=== PATIENT | female | born 1960 | race Caucasian/White ===

== ENCOUNTER 2021-06-25 08:41 | Observation (INO) | payer OTHER, SELFPAY ==
[2021-06-25] VITALS (45 sets, daily range): BP systolic 102–138; BP diastolic 51–76; PULSE 43–95; RESP 12–29; TEMP 36.2–36.9; O2SAT 93–100; BMI 24.1
--- NOTE | ~2021-06-25 | XR_ITS ---
EXAMINATION: XR chest 1V portable DATE: 06/25/2021 12:07 INDICATION: Syncope and vomiting TECHNIQUE: frontal view of the chest was obtained. COMPARISON: None FINDINGS: The lungs are clear with no focal airspace opacities, pulmonary edema, pleural effusion or pneumothor ax. The cardiomediastinal silhouette is within normal limits accounting for AP technique and slight r ightward rotation of the patient. IMPRESSION: 1. No acute cardiopulmonary disease. Reviewed, dictated and finalized at location B.
--- NOTE | 2021-06-25 08:49 | ECG_ITS ---
Measurements Intervals [place] Rate: 42 P: 73 [place]: 206 QRS: 19 QRSD: 122 T: -1 QT: 511 QTc: 431 Interpretive Statements SINUS BRADYCARDIA WITH SINUS ARRHYTHMIA BASELINE ARTIFACT- II, III, AVR, AVF, V1, V3-V6 ABNORMAL ECG Electronically Signed On 06-25-2021 9:14:27 CDT by Graeme Saha D.O.
[2021-06-25 09:29] LABS: Basophils Absolute Auto 0.1 K/mm3 (0.0-0.1); Basophils Percent Auto 0.7 % (0.2-1.2); Eosinophils Absolute Auto 0.1 K/mm3 (0-0.3); Eosinophils Percent Auto 0.7 % (0-4.4); Hematocrit 33.7 % (37.0-47.0); Hemoglobin 11.1 g/dL (12.0-15.0); Immature Granulocyte Absolute 0.02 K/mm3 (0.00-0.031); Immature Granulocyte Percent A 0.3 % (0-0.5); Lymphocytes Absolute Auto 1.27 K/mm3 (0.9-3.2); Lymphocytes Percent Auto 18.6 % (18.3-44.2); Mean Corpuscular HGB Conc 32.9 g/dl (32-36); Mean Corpuscular Hemoglobin 30.8 pg (26-34); Mean Corpuscular Volume 93.6 fl (80-100); Monocytes Absolute Auto 0.5 K/mm3 (0.1-0.6); Monocytes Percent Auto 7.3 % (2.6-8.5); Neutrophils Percent Auto 72.4 % (45.5-73.1); Platelet Count Result 271 k/mm3 (150-375); White Blood Count 6.8 K/mm3 (4.5-10.0)
[2021-06-25 09:40] LABS: Anion Gap 9 mmol/L (8-16); Blood Urea Nitrogen 14 mg/dL (7-17); Calcium 9.4 mg/dL (8.4-10.2); Carbon Dioxide 25 mmol/L (22-30); Chloride 101 mmol/L (98-107); Estimated CRCL calculation 44 ml/min; Estimated Glomerular Filt Rate > 60; Glucose 136 mg/dL (65-110); Potassium 3.6 mmol/L (3.4-5.0); Sodium 135 mmol/L (137-145)
[2021-06-25] MEDS: ONDANSETRON INJ 4 MG/2 ML VIAL IV PUSH (11:16)
--- NOTE | 2021-06-25 11:21 | ED.SYNCOPE ---
HPI - Syncope General Chief Complaint: Syncope Stated Complaint: DIZZY/SYNCOPE Time Seen by Provider: 06/25/21 09:57 Source: patient, EMS and RN notes reviewed Limitations: no limitations History of Present Illness HPI narrative: 61 years old white female brought to the emergency room by ambulance from work because of syncope. Patient was walking at work across the room, felt lightheadedness, and felt like she is going to pass out. Patient laid down on the floor, kept her legs above a chair then passed out for unknown duration. No weakness. On arrival to emergency room patient is nauseated, feeling weak all over, and dizzy. Patient is telling me that she did not feel well when she got up from sleep this morning with lightheadedness. Patient was seen her acting section chief yesterday at [facility] Dr. Webb for regular checkup and was told that probably she is going to need a pacemaker. History of atrial fibrillation, vasovagal, patient on flecainide, metoprolol, Eliquis and aspirin. Patient is not vaccinated for COVID-19 Related Data Home Medications Medication Instructions Recorded Confirmed aspirin [Adult Low Dose Aspirin] 81 mg PO DAILY 11/01/19 11/01/19 escitalopram oxalate 10 mg PO DAILY 11/01/19 11/01/19 metoprolol tartrate 25 mg PO BID 11/01/19 11/01/19 Allergies Allergy/AdvReac Type Severity Reaction Status Date / Time gluten Allergy Unknown Rash Verified 11/01/19 18:23 Review of Systems Review of Systems: CONSTITUTIONAL: Denies fever, chills, or sweats. EYES: Denies visual changes, redness, or discharge. ENT: Denies rhinorrhea, congestion, sore throat, or otalgia. CARDIOVASCULAR: Denies chest pain, palpitations, or edema. RESPIRATORY: Denies cough or dyspnea. GASTROINTESTINAL: Denies abdominal pain, nausea, vomiting, or diarrhea. GENITOURINARY: Denies dysuria or hematuria. SKIN: Denies rash or itching. MUSCULOSKELETAL: Denies back pain, joint pain, or myalgia. NEUROLOGIC: Denies headache, numbness, or weakness. PSYCHIATRIC: Denies anxiety or depression. [facility] Past Medical History Medical History Afib Vasovagal syncope Surgical History Surgical History H/O left knee surgery History of removal of ovarian cyst History of right knee surgery Social History Social History Smoking status: Never smoker Gender identity (if verbalized by the patient): Female Exam Narrative: General appearance: Well-developed, well-nourished Skin: Normal color Head: Normocephalic, nontraumatic Eyes: Clear conjunctiva ENT: Oropharynx normal, ears normal, nose normal Neck: Supple, nontender Chest and respiratory: Airway patent, no respiratory distress, no accessory muscle use Heart: Bradycardia Abdomen: Soft, nontender, no organomegaly, quiet bowel sounds Vascular: Normal peripheral pulses, normal capillary refill. 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
--- NOTE | 2021-06-25 12:59 | PM.IMHP ---
H&P: HPI History of Present Illness Date/Time: 06/25/21 12:59 this is a 61-year-old female patient who was brought to the emergency room via ambulance from work due to syncopal episode. The patient stated that she was walking across the room and felt lightheaded. She stated that she did lose consciousness for few seconds. The patient stated that she laid on the floor and had her feet elevated. She did not have any weakness but complained of some mild chest discomfort. The patient typically sees a hourly shift Dr. Webb at [facility]. her last visit to her hourly shift was yesterday. The patient stated that she has had several syncopal episodes over the years. She was told by her hourly shift that she may possibly need to receive a pacemaker. Her heart rate is in the 40s here. She was given Zofran in the emergency room. She does have a history of atrial fibrillation and is on anticoagulation. She has not been vaccinated for COVID-19. She is being admitted for inpatient services on the date of service of 06/25/2021. Chief Complaint: Syncopal episode Review of Systems Review of Systems: All systems reviewed & are unremarkable except as noted in HPI and below Constitutional: Constitutional: Reports as per HPI and Reports no additional constitutional complaints Eyes: Eyes: Reports as per HPI and Reports no additional eye complaints ENT: Reports system reviewed and no additional complaints, except as documented and Reports Normal hearing present Cardiovascular: Cardiovascular: Reports no additional cardiovascular complaints Respiratory: Respiratory: Reports no additional respiratory complaints and Reports no additional respiratory complaints Gastrointestinal: Gastrointestinal: Reports as per HPI and Reports no additional gastrointestinal complaints Musculoskeletal: Musculoskeletal: Reports no additional musculoskeletal complaints Integumentary/Breasts: Skin/Breast: Reports system reviewed and no additional complaints, except as docu and Reports as per HPI Neurologic: Reports system reviewed and no additional complaints, except as documented, Reports as per HPI and Reports Normal hearing present Psychiatric: Psychiatric: Reports no additional psychiatric complaints and Reports as per HPI Endocrine: Endocrine: Reports no additional endocrine complaints Hematologic/Lymphatic: Hematologic/Lymphatic: Reports no additional hematologic/lymphatic complaints Allergic/Immunologic: Allergic/Immunologic: Reports no additional allergic/immunologic complaints PMFSH Past Medical History Medical History Afib Paroxysmal Vasovagal syncope Surgical History Surgical History H/O left knee surgery History of removal of ovarian cyst History of right knee surgery Family History Family History (Updated 06/25/21 @ 13:10 by Gail Peck NP) Father CAD (coronary artery disease) Mother Pancreatic cancer Social History Social History (Updated 06/25/21 @ 13:11 by Gail Peck NP) Social History: the patient is and does not have any children. 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 She desires to be a full code. She is a lifelong nonsmoker. She does not use any illicit drugs or alcohol. Smoking status: Never smoker Gender identity (if verbalized by the patient): Female Meds Home Medications and Allergies Home Medications Medication Instructions Recorded Confirmed Type aspirin [Adult Low Dose Aspirin] 81 mg PO DAILY 11/01/19 11/01/19 History escitalopram oxalate 10 mg PO DAILY 11/01/19 11/01/19 History metoprolol tartrate 25 mg PO BID 11/01/19 11/01/19 History Allergies Allergy/AdvReac Type Severity Reaction Status Date / Time gluten Allergy Unknown Rash Verified 11/01/19 18:23 Vital Signs Vital Signs - 24 hr 06/25/21 08:45
--- NOTE | 2021-06-25 13:03 | PC.NURSE ---
PT. c/o to RN that she is severely dehydrated and dizzy. Pt. reports fluids were hung but never given to her. RN educated pt. that those fluids were originally hung by EMS and that there were no orders for fluids at this time. RN offered to ask for fluid orders and Zofran. pt. refused stating she will be fine.
[2021-06-25 13:45] LABS: Alanine Aminotransferase 13 U/L (4-35); Albumin Level 4.3 g/dL (3.5-5.1); Alkaline Phosphatase 55 U/L (38-126); Aspartate Amino Transferase 27 U/L (14-36); Bilirubin,Total 0.4 mg/dL (0.2-1.3)
[2021-06-25 13:53] LABS: Troponin I < 0.012 ng/mL (0.000-0.034)
--- NOTE | 2021-06-25 14:33 | ADMGEN ---
This patient, Serenity Gastelum, was admitted to IMU Room 200-01. Patient/family oriented to hospital policies and general routines including ID bracelet, bed and alarms, visiting hours, pain management, procedures, bathroom and other care routines, personal items, smoking policy, room service/diet, and visiting hours. Information on how to activate the Rapid Response Team has been discussed. Patient/Family are encouraged to report perceived risks to care and to ask questions if they do not understand what they are told or what they should do.
[2021-06-25] MEDS: SODIUM CHLORIDE 0.9% IV 1,000 ML 100 ML IV CONT (14:51)
--- NOTE | 2021-06-25 15:47 | PM.CNCAR ---
Assessment and Plan Assessment and plan (1) Afib: Code(s): I48.91 - Unspecified atrial fibrillation Status: Chronic Assessment and Plan: She is markedly bradycardic at this point. This is likely result of her syncope. Will hold her metoprolol and flecainide. I did talk to her about the possibility of a pacemaker. I think that it is a reasonable option given the fact she has required antiarrhythmic therapy in order to maintain sinus rhythm. Obviously another option would be to simply stop per flecainide and metoprolol and keep her on anticoagulation and monitor heart rate and rhythm. Regardless though for now given her bradycardia she is in agreement to stop the metoprolol and flecainide. Obviously will hold her Eliquis also in preparation for possible pacemaker implantation. Will further discuss this with Dr. Hernández. Will order 2D echocardiogram with Doppler to re-evaluate her overall ejection fraction preparation for pacemaker and given her syncopal episode. Will also review records from Dr. Garza (2) Syncope: Qualifiers: Syncope type: unspecified Qualified Code(s): R55 - Syncope and collapse Code(s): R55 - Syncope and collapse Status: Acute Assessment and Plan: Will check echo and hold metoprolol and flecainide. Continue telemetry monitoring. (3) Bradycardia, sinus: Code(s): R00.1 - Bradycardia, unspecified Status: Acute Assessment and Plan: As above. EKG in the morning. 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 Olmos History: Patient is a 61-year-old female who did see Dr. Hernández a couple of years ago. She was seen for atrial fibrillation. She ventrally went to Dr. Garza at [facility] for electrophysiology evaluation and treatment of her atrial fibrillation. She was recently put on metoprolol. She had a cardioversion on metoprolol but then reverted back into atrial fibrillation about a year later. She was then started on antiarrhythmic therapy including sotalol and then transition to flecainide with metoprolol. She had another cardioversion on antiarrhythmic therapy. She remains in sinus rhythm but over the past couple weeks has not been feeling very well. Yesterday she had an appointment with Dr. Garza. It was noted that she was markedly bradycardic. There was a conversation between he and the patient about proceeding with a pacemaker versus stopping flecainide and metoprolol. His office is supposed to call her back in a couple of days to finalize decision. Patient has been feeling quite poorly over the past couple of weeks. She is feeling listless, weak, lack of energy, shortness of breath. Today she proceeded to go to work despite feeling poorly. While at work she felt very dizzy, lightheaded and knew she was going to pass out. She has passed out the past and so she walked over to a corner and sat down and did lose consciousness. She is unaware as to how long she was unconscious. Regardless though EMS was called she was brought to the hospital for further evaluation where she is found to be markedly bradycardic with heart rate in low 40s. There is also slight concern of a 2-1 heart block. Regardless she was admitted for further workup and evaluation. Originally she was going to be transferred to [facility] which she wanted to stay here for 2nd opinion
[2021-06-25 15:53] LABS: Troponin I < 0.012 ng/mL (0.000-0.034)
[2021-06-25 21:18] LABS: T4 Thyroxine 6.83 ug/dL (5.53-11.0)
[2021-06-26] VITALS (10 sets, daily range): BP systolic 106–125; BP diastolic 62–77; PULSE 40–51; RESP 12; TEMP 36.2–37.1; O2SAT 96–100
--- NOTE | 2021-06-26 | ECHO_ITS ---
Patient Info Name: Serenity Gastelum Age: 61 years : 1960 Gender: Female Ht: 62 in Wt: 132 lbs BSA: 1.63 m2 HR: 45 bpm BP: 109 / 63 mmHg Heart Rhythm: Sinus Rhythm Exam Date: 06/26/2021 8:54 AM Exam Location: [facility] Patient Status: Outpatient Admit Date: 06/25/2021 Staff Ordering Physician: Michelet Villalobos MD Application Software Engineer: Yosef Greene, LIO, RT Attending Provider: Jake Isaac MD Referring Physician: Griselda PORTILLO; Exam Type: CA echo doppler color flow Study Info Indications R55 - Syncope and collapse R00.1 - Bradycardia, unspecified Complete two-dimensional, color flow and Doppler transthoracic echocardiogram is performed. Strain analysis performed. Summary 1. Complete two-dimensional, color flow and Doppler transthoracic echocardiogram is performed. 2. Strain analysis performed. 3. Left ventricular chamber dimension is normal. 4. Left ventricular systolic function is normal, estimated at 55-60%. 5. There is no increased left ventricular wall thickness. 6. The left ventricular diastolic function is normal. 7. Global longitudinal strain is normal at -24 %. 8. Left atrial chamber dimension is moderately enlarged. 9. There is mild aortic valve regurgitation. 10. The mitral valve has posterior prolapse. 11. There is mild mitral valve regurgitation. 12. There is mild tricuspid valve regurgitation. 13. Mild pulmonary hypertension, estimated pulmonary arterial systolic pressure is 42 mmHg. 14. There is mild pulmonic regurgitation. Left Ventricle Left ventricular chamber dimension is normal. Left ventricular systolic function is normal, estimated at 55-60%. There is no increased left ventricular wall thickness. The left ventricular diastolic function is normal. Global longitudinal strain is normal at -24 %. Right Ventricle Right ventricular chamber dimension is normal. Right ventricular systolic function is normal. Left Atria Left atrial chamber dimension is moderately enlarged. Right Atria Right atrial chamber dimension is normal. Atrial Septum Intact interatrial septum visualized by color flow imaging. Aortic Valve The aortic valve is trileaflet. There is no aortic valve sclerosis. There is no aortic valve stenosis. There is mild aortic valve regurgitation. Pulmonic Valve The pulmonic valve is normal. There is no pulmonic valve stenosis. There is mild pulmonic regurgitation. Mitral Valve The mitral valve has posterior prolapse. There is no mitral valve stenosis. There is mild mitral valve regurgitation. Tricuspid Valve The tricuspid valve leaflets are normal. There is no significant tricuspid valve stenosis. There is mild tricuspid valve regurgitation. Mild pulmonary hypertension, estimated pulmonary arterial systolic pressure is 42 mmHg. Pericardium/Pleural The pericardium appears normal. There is no pericardial effusion. Inferior Vena Cava Dilated inferior vena cava with <50% collapse upon inspiration consistent with elevated right atrial pressure, 15 mmHg. Aorta The aortic root size at the sinus of Valsalva is normal. Left Ventricular Outflow Tract Name Value Normal LVOT 2D LVOT Diameter 2.1 cm
[2021-06-26] MEDS: SODIUM CHLORIDE 0.9% IV 1,000 ML 100 ML IV CONT (01:08)
[2021-06-26 05:19] LABS: Basophils Percent Auto 0.6 % (0.2-1.2); Eosinophils Absolute Auto 0.1 K/mm3 (0-0.3); Eosinophils Percent Auto 1.1 % (0-4.4); Hematocrit 30.8 % (37.0-47.0); Hemoglobin 9.9 g/dL (12.0-15.0); Immature Granulocyte Absolute 0.01 K/mm3 (0.00-0.031); Immature Granulocyte Percent A 0.2 % (0-0.5); Lymphocytes Percent Auto 26.4 % (18.3-44.2); Mean Corpuscular HGB Conc 32.1 g/dl (32-36); Mean Corpuscular Hemoglobin 30.1 pg (26-34); Mean Corpuscular Volume 93.6 fl (80-100); Mean Platelet Volume 9.2 fl (7.4-10.4); Monocytes Absolute Auto 0.7 K/mm3 (0.1-0.6); Neutrophils Absolute Auto 3.9 K/mm3 (1.3-6.7); Neutrophils Percent Auto 60.7 % (45.5-73.1); Platelet Count Result 245 k/mm3 (150-375); Red Blood Count 3.29 M/mm3 (4.2-5.4); Red Cell Distribution Width 12.1 % (11.5-14.5); White Blood Count 6.4 K/mm3 (4.5-10.0)
[2021-06-26 05:28] LABS: Alanine Aminotransferase 10 U/L (4-35); Albumin Level 3.7 g/dL (3.5-5.1); Alkaline Phosphatase 41 U/L (38-126); Anion Gap 4 mmol/L (8-16); Aspartate Amino Transferase 21 U/L (14-36); Bilirubin,Total 0.7 mg/dL (0.2-1.3); Blood Urea Nitrogen 12 mg/dL (7-17); Calcium 8.7 mg/dL (8.4-10.2); Carbon Dioxide 26 mmol/L (22-30); Chloride 106 mmol/L (98-107); Estimated CRCL calculation 44 ml/min; Estimated Glomerular Filt Rate > 60; Glucose 87 mg/dL (65-110); Magnesium 1.8 mg/dL (1.6-2.3); Potassium 3.6 mmol/L (3.4-5.0); Sodium 136 mmol/L (137-145)
--- NOTE | 2021-06-26 08:57 | ECG_ITS ---
Measurements Intervals [place] Rate: 42 P: 101 CO: 202 QRS: 29 QRSD: 96 T: 31 QT: 496 QTc: 418 Interpretive Statements SINUS BRADYCARDIA BORDERLINE T WAVE ABNORMALITY- ANTEROLAT/INF LEADS ABNORMAL ECG Electronically Signed On 06-26-2021 10:00:05 CDT by Graeme Saha D.O.
--- NOTE | 2021-06-26 11:24 | PM.PNCARD ---
Progress Note: A&P Additional Plan 61-year-old woman with: Paroxysmal atrial fibrillation also possibly with an element of sick sinus syndrome and syncope. The beta-kirby and flecainide have been appropriately placed on hold. Since admission yesterday and through the night and into today there has been no significant Julio arrhythmias in terms of any asystolic pauses or anything that would mandate implanting a pacemaker at this point. My recommendation would be to resume her apixaban at this time and follow her as an outpatient obtaining a 48 hour Holter monitor in the next week or 2 and then spa owing up in the office to make decisions about alternative antiarrhythmic agents and/or implanting a pacemaker at that time. The patient indicates now that she wishes for me to provide this care rather than her physician in [place] and so I will schedule this to be done in my office here at [facility]. From my perspective she is stable for discharge today. I would resume her apixaban to offer protection against a cardioembolic event particularly since we are withdrawing antiarrhythmic therapy for the time being Lex Hernández MD [facility] Subjective Date/time seen: Date of service: 06/26/21 11:24 Interval history: Follow-up visit in this 61-year-old woman with: Paroxysmal atrial fibrillation having been treated with a combination of flecainide, metoprolol and apixaban by her physician in [place]. She enters the hospital with a syncopal episode and has been found to be in sinus bradycardia since admission. She states this is the 1st episode of syncope that she has had 2 or 3 years. Other than feeling generally weak she is stable hemodynamically today and otherwise feels reasonably well. Had a long discussion with the patient about the treatment options at this time. For the time being she is in sinus rhythm and has not had a recurrence of atrial fibrillation for about 10 or 11 months. She was cardioverted in [place] at about that time. Exam Const: General: comfortable and no acute distress HENMT: Mouth: Yes moist mucous membranes Eyes: Sclera: sclerae normal Pupils: Equal, round and reactive pupils present Neck: Neck: supple and no JVD Thyroid: thyroid normal Resp: Effort & Inspection: normal respiratory effort Auscultation: clear to auscultation bilaterally Cardio: Rate: regular rate Rhythm: regular rhythm Other: PMI nondisplaced no murmur no gallop no rub GI: GI Palp: Yes Soft to palpation Auscultation: normal bowel sounds Neuro: Cognition (Neuro): normal cognition Extrem: General: normal to inspection Objective Data Vital Signs Vital Signs: Vital Signs - 24 hr 06/25/21 11:30 06/25/21 11:31 06/25/21 11:45 Temperature Pulse Rate 51 L 52 L 48 L Respiratory Rate 18 16 13 Blood Pressure 121/61 Pulse Oximetry 97 98 99 06/25/21 11:46 06/25/21 12:00 06/25/21 12:01 Temperature Pulse Rate 49 L 51 L 51 L Respiratory Rate 18 12 16 Blood Pressure 114/55 L 124/63 Pulse Oximetry 98 100 99 06/25/21 12:15 06/25/21 12:17 06/25/21 12:30 Temperature Pulse Rate 57 L 51 L 54 L Respiratory Rate 18 15 29 H Blood Pressure 116/55 L Pulse Oximetry 96 06/25/21 12:46 06/25/21 12:47 06/25/21 13:00 Temperature Pulse Rate 57 L 54 L 51 L Respiratory Rate 16 20 12 Blood Pressure 103/67 Pulse Oximetry 99 99 100 06/25/21 13:01 06/25/21 13:15 06/25/21 13:16 Temperature Pulse Rate 50 L 52 L 52 L Respiratory Rate 16 13 14 Blood Pressure 102/58 L 112/59 L Pulse Oximetry 99 96 98 06/25/21 13:30 06/25/21 13:45 06/25/21 13:46 Temperature Pulse Rate 48 L 53 L 53 L Respiratory Rate 13 16 20 Blood Pressure 103/67 Pulse Oximetry 97 100 100 06/25/21 15:58 06/25/21 16:00 06/25/21 18:00 Temperature 36.6 C Pulse Rate 58 L 53 L 51 L Respiratory Rate 12 Blood Pressure 116/53 L Pulse Oximetry 99 06/25/21 18:45 06/25/21 20:00 06/25/21 22:00 Temperature 36.9 C
--- NOTE | 2021-06-26 13:06 | PM.DS ---
DS: Admitting Diagnosis Admitting Diagnosis Bradycardia DS: Discharge Diagnosis Discharge Diagnosis (1) Syncope: Qualifiers: Syncope type: unspecified Qualified Code(s): R55 - Syncope and collapse Code(s): R55 - Syncope and collapse Status: Acute (2) Bradycardia, sinus: Code(s): R00.1 - Bradycardia, unspecified Status: Acute (3) Paroxysmal atrial fibrillation: Code(s): I48.0 - Paroxysmal atrial fibrillation Status: Acute DS: Summary Hospital Course Hospital Course: Patient with known paroxysmal bradycardia admitted after a syncopal episode. Metoprolol and flecainide were held and patient was monitored on telemetry. No significant arrhythmia was detected. At this point there is no emergent indication for pacemaker. Patient will be discharged on eliquis, will follow up with cardiology for a 48-hour holter monitor. After additional information is gathered, she will be re-evaluated for reinstatement of antiarrhythmic medication versus pacemaker placement. Time Spent with Patient Time attestation: Total time spent providing and/or coordinating discharge services:30 minutes This is a 61-year-old lady with known paroxysmal atrial fibrillation who was brought to the emergency room via ambulance from work due to syncopal episode. The patient was walking across the room and felt lightheaded. She stated that she did lose consciousness for few seconds. The patient stated that she laid on the floor and had her feet elevated. She did not have any weakness but complained of some mild chest discomfort. The patient regularly sees a airline attendant Dr. Webb at [facility]. he most recent visit with her airline attendant was on the day prior to presentation. The patient endorses several syncopal episodes over the years, and was told she may possibly need a pacemaker. On presentation here her heart rate was in the 40s here. She was given Zofran in the emergency room. She does have a history of atrial fibrillation and is on flecainide and betablockers and chronic anticoagulation. She has not been vaccinated for COVID-19. Her antiarythmic medications were appropriately held upon presentation. She was monitored on telemetry. Telemetry strips were reviewed by cardiology. There have been no significant bradyarrhythmias or any asystolic pauses or anything that indicate implanting a pacemaker at this point. Patient was restarted on apixaban and will follow as an outpatient with cardiology setting up a 48 hour Holter monitor in the next week. The patient is in agreement with her discharge plan. Exam Narrative: V GENERAL: This is a well-nourished, well-developed female in no acute distress. HEENT: Pupils are equal, round, and reactive to light. Conjunctivae are pink. Tympanic membranes are within normal limits bilaterally. HEART: Cardiac exam reveals an irregularly irregular rhythm and rate without murmur or gallop. There is no carotid or abdominal bruits. LUNGS: Clear to auscultation bilaterally; no wheezing, crackles or rhonchi. BREASTS: deferred. ABDOMEN: Reveals normoactive bowel sounds, soft, nontender, no organomegaly. No tenderness or rebound tenderness. EXTREMITIES: Lower extremities reveal no edema, 2+ pulses. DS: Data Data Completed and Pending Completed studies during hospitalization: Echocardiogram 06/26/2021 Labs on day of discharge: Labs from last 24 hours 06/26/21 06/26/21 06/26/21 04:36 04:36 04:36 WBC 6.4 RBC 3.29 L Hgb 9.9 L Hct 30.8 L MCV 93.6 MCH 30.1 MCHC 32.1 RDW 12.1 Plt Count 245 MPV 9.2 Immature Gran % (Auto) 0.2 Neut % (Auto) 60.7 Lymph % (Auto) 26.4 [place] % (Auto) 11.0 H Eos % (Auto) 1.1 Baso % (Auto) 0.6 Lymph # (Auto) 1.70 [place] # (Auto) 0.7 H Eos # (Auto) 0.1 Baso # (Auto) 0.0 Abs Immat Gran (auto) 0.01 Absolute Neuts (auto) 3.9 Absolute Nucleated RBC 0.0 Nucleated RBC % 0.0 Sodium 13
== END 2021-06-26 15:15 | disposition home or self-care (01) ==
LOC: ANHED 11:38 → ANHIMU 06-26 12:13
PROVIDERS: Internal Medicine Cardiovascular Disease; Nurse Practitioner; Admitting Provider Internal Medicine; Emergency Provider Emergency Medicine; PCP Hospitalist; Visit Provider Internal Medicine
DX: R55 Syncope and collapse (principal); I48.91 Unspecified atrial fibrillation; Z79.01 Long term (current) use of anticoagulants; R00.1 Bradycardia, unspecified
CPT/HCPCS: 36415; 71045; 80048; 80053; 80076; 83735; 84436; 84443; 84484; 85025; 93005; 93306; 96361; 96374; 99285; G0378; J2405; J7030

== ENCOUNTER → 2022-03-03 13:50 | Outpatient (CLI) | payer OTHER, SELFPAY ==
--- NOTE | ~2022-03-03 | MM_ITS ---
EXAMINATION: MM screening kriss BI w uzair HISTORY: Screening mammogram TECHNIQUE: Craniocaudal and mediolateral oblique 3-D tomosynthesis images were obtained and synthetic 2-D images were generated. CAD analysis was submitted and interpreted. COMPARISON: , 07/25/2014 bilateral screening mammogram examinations BREAST PARENCHYMAL COMPOSITION: The breasts are heterogeneously dense, which may obscure small masses . FINDINGS: Left-sided pacemaker device is noted overlying the axillary area. There is no evidence of s uspicious mass, calcification, or architectural distortion to suggest malignancy in either breast. Th ere has been no suspicious interval change. IMPRESSION: 1. No mammographic evidence of malignancy. 2. Recommend routine screening mammography in one year. BI-RADS Category 1: Negative Reviewed, dictated and finalized at location D.
== END ==
PROVIDERS: PCP Hospitalist; Visit Provider Hospitalist
DX: Z12.31 Encounter for screening mammogram for malignant neoplasm of breast (principal)
CPT/HCPCS: 77063; 77067

== ENCOUNTER 2024-04-27 10:15 | Outpatient (RCR) | payer MEDICARE, OTHER, SELFPAY ==
--- NOTE | 2024-04-06 14:10 | OPREHPOC ---
Outpatient Therapy Plan of Care This is a Multidisciplinary Plan of Care that may contain components documented by all disciplines (PT, OT, and ST.) PT Problem 1 PT Problem #1 Knowledge Deficit PT Goal 1 Goal Mayes with HEP Target Visit 4 PT Problem 2 PT Problem #2 Impaired Strength PT Goal 1 Goal Improve kodak hip abduction strength to 4/5 to improve lateral stability with ADLs, gait, and squatting Target Visit 8 PT Goal 2 Goal Improve kod[place] hip flexion to 4+/5 to improve foot progression and clearance Target Visit 8 PT Problem 3 PT Problem #3 Impaired Flexibility PT Goal 1 Goal Demonstrate minimal piriformis restriction kodak to improve hip rotational symmetry Target Visit 8 PT Problem 4 PT Problem #4 Pain PT Goal 1 Goal Report no pain greater than 1/10 with ambulation of 1 mile within the past week Target Visit 8
--- NOTE | 2024-04-06 14:10 | PTOPEVAL1 ---
Assessment and note entered by Ryan Doshi, PT Evaluation Information Assessment Status Evaluation Diagnosis Left knee pain Onset January 2024 Subjective Information Reports that for the most part she has been having pain in the knee all the time. reports that she is getting sciatica on her right side which has been brought on since having left knee trouble. Prior to this she was walking about a mile a day. She is currently doing about a quarter mile. Current injury was from falling on knee while putting on pants. She had a cortisone injection and was doing well initially but she was going to get up one day and felt a pop which reaggravated her issues. Reported Pain Level Pain Score 4: Self Report Assessment PT Clinical Summary Patient presents with mobility and stability issues of hips and core affecting gait and ADLs including increased torsional and valgus stress on knee. 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 Direct quad strengthenign and siolation will be avoided with emphasis on hip strength and functionality. Plan of Care Interventions Gait Training,Hot Pack/Cold Pack,Manual Therapy, Neuro Re-education,Therapeutic Activities, Therapeutic Exercise PT Services Indicated Yes Treatment Frequency and 2x/week for 8 visits Duration These treatments will address the objective and functional deficits as defined above. The patient will be advanced safely and appropriately in order for the patient to progress towards his/her prior level of function. Additional exercises will be introduced and as well as a comprehensive home exercise program upon discharge, if needed, ?to ensure carryover of functional gains achieved in the clinic. This treatment plan has been reviewed and agreement upon by the patient.
--- NOTE | 2024-05-04 12:06 | PCPTNOTE ---
Patient called to cancel all her appointment out due to doing well and doing her exercises at home.
--- NOTE | 2024-05-04 12:17 | PTOPDC ---
Assessment and note entered by Raiza Blanco DPT Evaluation Information Assessment Status Discharge - Pt Not Present Diagnosis Left knee pain Onset January 2024 Subjective Information - Assessment PT Clinical Summary The patient called and reports she has gone back to the doctor and is doing well, she is self discharging at this time. Plan of Care PT Services Indicated No
== END 2024-05-04 14:03 | disposition home or self-care (01) ==
LOC: ANHGOSHPT 10:15
PROVIDERS: PCP Hospitalist; Visit Provider Orthopaedic Surgery
DX: M25.562 Pain in left knee (principal)
CPT/HCPCS: 97110; 97112; 97161; 97530

== ENCOUNTER 2024-08-02 02:29 | Day surgery (SDC) | payer MEDICARE, OTHER, SELFPAY ==
--- NOTE | 2024-07-24 16:11 | PC.NURSE ---
Spoke with pt. she was in AFIB went in today for cardioversion and was not in Afib so was sent home. She is waiting to hear from Dr. Lo regarding if she can hold Xarelto to have colonoscopy or not. She asks to be called back 07/25 or 07/26 and she will attempt to reach him tomorrow, I told her I will try him also.
[2024-07-26 13:51] VITALS: BMI 26.0
--- NOTE | 2024-07-26 14:10 | SUR.PREOP ---
Spoke with patient about her xerelto. She did get a verbal clearance from Dr. Garza's office and that we would be getting a fax from their office with the clearance 07/25 or 07/26. I gave the office a call to tell them nothing had been received yet. Office nurse would be getting back with me.
--- NOTE | 2024-07-30 12:12 | SUR.PREOP ---
Notified patient that we got cardiac clearance and 07/30 should be her last dose of Xarelto until the GI provider gives instructions to resume after the procedure.
[2024-08-02 06:46] VITALS: BP 110/70; PULSE 66; RESP 18; TEMP 36.4; O2SAT 100
[2024-08-02] MEDS: LACTATED RINGERS 1,000 ML 150 ML IV CONT (06:54)
--- NOTE | 2024-08-02 07:37 | WPDANESEPPF ---
Anes - Initial Pre Proc Eval Procedure: Operation Date: 08/02/24 08:00 Proposed Procedures p Colonoscopy - Jalen Mills MD Date/Time: 08/02/24 07:37 Surgeon: Jalen Mills MD Pre Op Diagnosis: hx of colon polyps Patient Data Age: 64 Gender: F Height: 1.57 m Weight: 64.3 kg Last Vital Signs Temp 97.5 F L 08/02/24 06:46 Pulse 66 08/02/24 06:46 Resp 18 08/02/24 06:46 BP 110/70 08/02/24 06:46 Pulse Ox 100 08/02/24 06:46 O2 Del Method Room Air 08/02/24 06:46 Allergies Allergy/AdvReac Type Severity Reaction Status Date / Time naproxen Allergy Intermediate Rash Verified 08/02/24 06:43 gluten Allergy Unknown Rash Verified 08/02/24 06:43 Home Medications Medication Instructions Recorded Confirmed Type flecainide 50 mg tablet 50 mg PO BID 01/23/24 08/02/24 History metoprolol tartrate 25 mg tablet 12.5 mg PO BID 01/23/24 08/02/24 History rivaroxaban 20 mg tablet (Xarelto) 20 mg PO DAILY 01/23/24 08/02/24 History Patient hx anesthesia problems: none Family hx anesthesia problems: none Results Review: All pre-operative results and documents have been reviewed as part of the pre-operative evaluation. [facility] Past Medical History Medical History Afib Paroxysmal Chronic anticoagulation MVP (mitral valve prolapse) Pacemaker Paroxysmal atrial fibrillation Vasovagal syncope Surgical History Surgical History H/O left knee surgery x3 History of cardiac radiofrequency ablation History of removal of ovarian cyst History of right knee surgery Family History Family History Father CAD (coronary artery disease) Mother Pancreatic cancer Social History Social History Social History: the patient is and does not have any children. She desires to have her is a durable power hand spinner for healthcare. She desires to be a full code. She is a lifelong nonsmoker. She does not use any illicit drugs or alcohol. Smoking status: Never smoker Alcohol intake: never Substance use: never Substance use type: does not use Do You Feel Safe in your Home?: Yes Lack of Transportation: No Lack of Food: Never True Current Housing: I Have Housing Concerned About Future Housing: No Difficulty Paying Gas/Electric Bills: No Difficulty Paying for Meds: No Currently Unemployed: No Education: Decline to Answer Difficulty w/ Childcare or Family Care: Decline to Answer Living arrangements: other Additional living arrangements comments: with sp Occupation/Education: retired Gender identity (if verbalized by the patient): Female Spiritual care concerns: No Anes - Eval Final PreProcedure Day of Procedure 08/02/24 07:37 Patient weight: normal Heart: regular rate and rhythm Lungs: clear to auscultation Airway: Mallampati scale class 1 Neurological: alert and oriented Last oral intake: >/= 8 hours ASA classification: III Emergent: no Anesthetic plan: proceed Anesthesia type and monitoring: general GIVS and standard monitoring Results Review: All pre-operative results and documents have been reviewed as part of the pre-operative evaluation. hx of atrial fib, now in NSR. Pacemaker in place (medtronic). CRMD form reviewed. Informed Consent: The patient's anesthetic plan and its attendant risks and benefits were discussed with the patient/family/POA. Questions were solicited and answers provided to the satisfaction of the patient/family/POA.
[2024-08-02] MEDS: ONDANSETRON INJ 4 MG/2 ML VIAL IV PUSH (07:42)
--- NOTE | 2024-08-02 07:51 | PM.HPGS ---
History of Present Illness History of Present Illness Consent: Risks, benefits, and alternatives have been discussed and questions answered. Patient agrees to proceed with procedure. Chief complaint: hx of colon polyps Narrative: Serenity Gastelum is a 64 year old female with colon polyp in 2018 Review of Systems Review of Systems: All systems reviewed & are unremarkable except as noted in HPI and below PMFSH Past Medical History Medical History (Updated 08/02/24 @ 07:53 by Jalen Mills MD) Afib Paroxysmal Chronic anticoagulation Colon polyp MVP (mitral valve prolapse) Pacemaker Paroxysmal atrial fibrillation Vasovagal syncope Surgical History Surgical History H/O left knee surgery x3 History of cardiac radiofrequency ablation History of removal of ovarian cyst History of right knee surgery Family History Family History Father CAD (coronary artery disease) Mother Pancreatic cancer Social History Social History Social History: the patient is and does not have any children. She desires to have her is a durable power disability attorney for healthcare. She desires to be a full code. She is a lifelong nonsmoker. She does not use any illicit drugs or alcohol. Smoking status: Never smoker Alcohol intake: never Substance use: never Substance use type: does not use Do You Feel Safe in your Home?: Yes Lack of Transportation: No Lack of Food: Never True Current Housing: I Have Housing Concerned About Future Housing: No Difficulty Paying Gas/Electric Bills: No Difficulty Paying for Meds: No Currently Unemployed: No Education: Decline to Answer Difficulty w/ Childcare or Family Care: Decline to Answer Living arrangements: other Additional living arrangements comments: with sp Occupation/Education: retired Gender identity (if verbalized by the patient): Female Spiritual care concerns: No Meds Home Medications and Allergies Home Medications Medication Instructions Recorded Confirmed Type flecainide 50 mg tablet 50 mg PO BID 01/23/24 08/02/24 History metoprolol tartrate 25 mg tablet 12.5 mg PO BID 01/23/24 08/02/24 History rivaroxaban 20 mg tablet (Xarelto) 20 mg PO DAILY 01/23/24 08/02/24 History Allergies Allergy/AdvReac Type Severity Reaction Status Date / Time naproxen Allergy Intermediate Rash Verified 08/02/24 06:43 gluten Allergy Unknown Rash Verified 08/02/24 06:43 Vital Signs Vital Signs - 24 hr 08/02/24 06:46 Temperature 97.5 F L Pulse Rate 66 Respiratory Rate 18 Blood Pressure 110/70 Pulse Oximetry 100 Oxygen Delivery Room Air Exam Const: General: comfortable and no acute distress HENMT: Face/Nose/Sinus: Normal nares present Eyes: General: appearance normal, both eyes and all related structures Neck: Neck: no JVD Resp: Auscultation: clear to auscultation bilaterally Cardio: Rate: regular rate Rhythm: regular rhythm GI: Inspection: non-distended GI Palp: Yes Soft to palpation Skin: General skin exam: normal color Neuro: General: gait normal Speech: normal speech Extrem: General: normal to inspection Psych: Mental Status: mental status grossly normal Assessment and Plan Assessment and plan (1) Colon polyp: Code(s): K63.5 - Polyp of colon Status: Acute Assessment and Plan: colonoscopy
[2024-08-02 08:10] VITALS: BP 91/58; PULSE 60; RESP 18; O2SAT 95
[2024-08-02 08:20] VITALS: BP 99/62; PULSE 55; RESP 14; O2SAT 98
[2024-08-02 08:30] VITALS: BP 121/93; PULSE 60; RESP 21; O2SAT 100
== END 2024-08-02 08:42 | disposition home or self-care (01) ==
PROVIDERS: PCP Hospitalist; Visit Provider Internal Medicine Gastroenterology
PROC: 0DJD8ZZ Inspection of Lower Intestinal Tract, Via Natural or Artificial Opening Endoscopic (ICD-10-PCS; CPT 45378; principal; 2024-08-02 08:00)
DX: Z12.11 Encounter for screening for malignant neoplasm of colon (principal); K64.8 Other hemorrhoids; Z86.0100 Personal history of colon polyps, unspecified; I48.0 Paroxysmal atrial fibrillation; I34.1 Nonrheumatic mitral (valve) prolapse; Z95.0 Presence of cardiac pacemaker; Z79.01 Long term (current) use of anticoagulants
CPT/HCPCS: G0105; J2003; J2405; J2704; J7120